=== PATIENT | male | born 1995 | race Caucasian/White ===

== ENCOUNTER 2016-11-19 23:19 | Emergency (ER) | payer SELFPAY ==
[2016-11-19 23:42] VITALS: BP 130/64
[2016-11-19 23:49] LABS: Urine Bilirubin Negative (Negative); Urine Glucose Negative (Negative); Urine Nitrite Negative (Negative)
[2016-11-20 00:02] LABS: Hematocrit 43 % (42-52); Hemoglobin 13.9 g/dl (14.0-18.0); Mean Corpuscular HGB Conc 33 g/dl (31-36); Mean Corpuscular Hemoglobin 25 pg (27-31); Mean Corpuscular Volume 78 fL (80-94); Mean Platelet Volume 8 um3 (7.4-10.4); Red Blood Count 5.47 10^6/ul (4.0-5.4); Red Cell Distribution Width 14 % (10.5-15); White Blood Count 8.1 10^3/ul (3.5-10.8)
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
[2016-11-20 00:13] LABS: ALT 8 U/L (7-52); AST 15 U/L (13-39); Albumin 4.5 g/dL (3.2-5.2); Alkaline Phosphatase 39 U/L (34-104); Anion Gap 7 mmol/L (2-11); BUN/Creatinine Ratio 11.8 (8-20); Blood Urea Nitrogen 11 mg/dL (6-24); CO2 Carbon Dioxide 26 mmol/L (22-32); Chloride 103 mmol/L (101-111); EGFR African American 134.6 (>60); EGFR Non-African American 104.7 (>60); Globulin 2.6 g/dL (2-4); Glucose 95 mg/dL (70-100); Potassium 3.7 mmol/L (3.5-5.0); Sodium 136 mmol/L (133-145); Total Protein 7.1 g/dL (6.4-8.9)
[2016-11-20 00:14] LABS: Benzodiazepine Urine Screen None Detected (None Detect)
[2016-11-20 00:28] LABS: Acetaminophen < 15 mcg/mL; Alcohol < 10 mg/dL (<10); Salicylate < 2.50 mg/dL (<30)
[2016-11-20 00:38] LABS: TSH (Thyroid Stimulating Horm) 4.62 mcIU/mL (0.34-5.60)
== END 2016-11-20 12:52 | disposition home or self-care (01) ==
LOC: ED 23:19
DX: R45.851 Suicidal ideations (principal); F17.210 Nicotine dependence, cigarettes, uncomplicated; F32.9 Major depressive disorder, single episode, unspecified
CPT/HCPCS: 36415; 80053; 80307; 80320; 80329; 81003; 84443; 85025; 99284; G0480

== ENCOUNTER → 2017-03-14 14:24 | Emergency (ER) | payer SELFPAY ==
[2017-03-14 14:43] VITALS: BP 148/53
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
== END | disposition home or self-care (01) ==
LOC: ED 14:24
DX: S01.511A Laceration without foreign body of lip, initial encounter (principal); S00.83XA Contusion of other part of head, initial encounter; Y04.0XXA Assault by unarmed brawl or fight, initial encounter; Y92.9 Unspecified place or not applicable; F32.9 Major depressive disorder, single episode, unspecified; F41.9 Anxiety disorder, unspecified; F17.210 Nicotine dependence, cigarettes, uncomplicated

== ENCOUNTER 2017-06-01 17:53 | Emergency (ER) | payer SELFPAY ==
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
--- NOTE | 2017-06-01 20:05 | RAD ---
INDICATION: Chest pain. COMPARISON: Comparison is made with a prior chest x-ray study from October 10, 2008. TECHNIQUE: Dual-energy PA and lateral views of the chest were obtained. FINDINGS: The heart is within normal limits in size. Mediastinal and hilar contours appear within normal limits. The lungs are clear. No pleural effusion or pneumothorax is seen. IMPRESSION: NO EVIDENCE FOR ACTIVE CARDIOPULMONARY DISEASE.
[2017-06-01 20:12] VITALS: BP 128/79
== END 2017-06-01 20:11 | disposition home or self-care (01) ==
LOC: ED 17:53
DX: R07.89 Other chest pain (principal)
CPT/HCPCS: 71020; 99282

== ENCOUNTER → 2017-11-08 15:04 | Emergency (ER) | payer SELFPAY ==
[~2017-11-08 15:04] MED LIST: Benzocaine/Butamben/Tetracain* SPRAY TOPICAL ONE; Clindamycin CAP* 150 MG PO ONE; Ibuprofen TAB* 800 MG PO ONE; Ketorolac INJ* 60 MG/2 ML VIAL IM ONE; traMADol TAB* 50 MG PO ONE
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
[2017-11-08 19:31] VITALS: BP 158/88
--- NOTE | 2017-11-12 12:59 | ED ---
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 He was started on clindamycin capsules and chlorhexadine oral mouth wash. No change at this time.
== END | disposition home or self-care (01) ==
LOC: ED 15:04
DX: K04.7 Periapical abscess without sinus (principal); B96.89 Other specified bacterial agents as the cause of diseases classified elsewhere; F17.210 Nicotine dependence, cigarettes, uncomplicated
CPT/HCPCS: 87070; 87076; 87185; 87205; 87640; 87641; 96372; 99282; A9270-GY; J1885

== ENCOUNTER 2018-02-28 16:06 | Emergency (ER) | payer SELFPAY ==
[2018-02-28] MEDS ORDERED: Tetan/Diph/Pertus SYR(Tdap)* 0.5 ML SYR(BOOSTRIX) use SYR IM ONE (16:44)
--- NOTE | 2018-02-28 16:50 | ED ---
Bite Injury/Animal - HPI Summary HPI Summary: Patient is an otherwise healthy 22-year-old male presenting to the ED with a chief complaint of dog bite to the right arm. He sustained the injury at approximately midnight last night (18 hours ago)There are 3 large puncture wounds to the right forearm not requiring sutures. He denies any fevers, sweats , chills. He is able to move about the wrist, elbow joint and fingertips without pain. Denies any numbness, tingling, color or temperature changes to the ipsilateral hand. - History of Current Complaint Chief Complaint: EDAnimalBite Stated Complaint: DOG BITE Time Seen by Provider: 02/28/18 16:31 Hx Obtained From: Patient Onset of Injury: Happened hours ago Type of Bite: Pet Hx of Bite: Unprovoked Has Animal Been Immunized?: Yes Severity Initially: Mild Severity Currently: Mild Pain Intensity: 4 Pain Scale Used: 0-10 Numeric Character: Puncture Alleviating Factor(s): Rest Associated Signs And Symptoms: Positive: Negative Animal Available for Observation: Yes - Risk Factors Infection/Sepsis Risk Factors: Negative - Allergies/Home Medications Allergies/Adverse Reactions: Allergies Allergy/AdvReac Type Severity Reaction Status Date / Time No Known Allergies Allergy Verified 02/28/18 16:25 PMH/Surg Hx/FS Hx/Imm Hx Previously Healthy: Yes Endocrine/Hematology History: Denies: Hx Anticoagulant Therapy, Hx Blood Disorders Psychiatric History: Reports: Hx Anxiety, Hx Depression, Hx Panic Disorder, Hx Suicide Attempt - walked up a deborah to jump off, Hx of Violent Episodes Against Others, Hx Substance Abuse - marijuana Denies: Hx Attention Deficit Hyperactivity Disorder, Hx Eating Disorder, Hx Post Traumatic Stress Disorder, Hx Inpatient Treatment, Hx Community Mental Health Tx, Hx Schizophrenia, Hx Bipolar Disorder, Other Psychiatric Issues/ Disorders - Surgical History Surgery Procedure, Year, and Place: Pt had full set of ovaries removed when 3 years old - Immunization History Hx Pertussis Vaccination: No Immunizations Up to Date: Unable to Obtain/Confirm Infectious Disease History: No Infectious Disease History: Denies: Traveled Outside the [place] in Last 30 Days - Family History Known Family History: Positive: Hypertension, Other - alcoholism, depression - Social History Occupation: Employed Full-time Lives: With Family - to Alcohol Use: Weekly Alcohol Amount: 1 beer per month Hx Substance Use: Yes Substance Use Type: Reports: Marijuana Substance Use Comment - Amount & Last Used: Daily Hx Tobacco Use: Yes Smoking Status (MU): Current Every Day Smoker Type: Cigarettes Length of Time of Smoking/Using Tobacco: since he was 17 years old Have You Smoked in the Last Year: Yes Review of Systems Constitutional: Negative Negative: Fever, Chills, Fatigue, Skin Diaphoresis Eyes: Negative Cardiovascular: Negative Respiratory: Negative Negative: Shortness Of Breath Negative: Abdominal Pain, Vomiting, Diarrhea Genitourinary: Negative Positive: no symptoms reported, see HPI - was Positive: Other - 3 punctures wounds Neurological: Negative All Other Systems Reviewed And Are Negative: Yes Physical Exam Triage Information Reviewed: Yes Vital Signs On Initial Exam: Initial Vitals Temp Pulse Resp BP Pulse Ox 98.7 F 90 15 128/78 98 02/28/18 16:25 02/28/18 16:25 02/28/18 16:25 02/28/18 16:25 02/28/18 16:25 Vital Signs Reviewed: Yes Appearance: Positive: Well-Appearing, Well-Nourished Skin: Positive: Skin Color Reflects Adequate Perfusion, Other - 3 puncture wounds Head/Face: Positive: Normal Head/Face Inspection Eyes: Positive: EOMI, BELEN, Conjunctiva Clear Neck: Positive: Supple, Nontender, No Lymphadenopathy Respiratory/Lung Sounds: Positive: Clear to Auscultation, Breath Sounds Present Cardiovascular: Positive: Normal, RRR, Pulses are Symmetrical in both Upper and Lower Extremities Musculoskeletal: Positive: Normal, Strength/ROM Intact Neurological: Positive: Speech Normal Psychiatric: Positive: Normal, Affect/Mood Appropriate AVPU Assessment: Alert Diagnostics - Vital Signs Vital Signs Temp Pulse Resp BP Pulse Ox 02/28/18 16:25 98.7 F 90 15 128/78 98 - Laboratory Lab Statement: Any lab studies that have been ordered have been reviewed, and results considered in the medical decision making process. Bite Injury Course/Dx - Course Course Of Treatment: Patient is evaluated for 3 puncture wounds to the right forearm from a known dog/dogbite. Immunizations including rabies are up to date. He is given Augmentin 5 days. Wound occurred 18 hours ago and continues to be non-erythematous, no warmth and denies any pain. He is moving the extremity very well. He is okay with this plan and discharged. No given for work today. - Diagnoses Differential Diagnosis/HQI/PQRI: Positive: Cellulitis, Laceration Provider Diagnosis: Dog bite Discharge - Sign-Out/Discharge Documenting (check all that apply): Discharge - Discharge Plan Condition: Stable Disposition: HOME Prescriptions: Amoxicillin/Clavulanate TAB* [Augmentin TAB 875*] 875 mg PO BID #10 tab Patient Education Materials: Animal Bite (ED) Forms: *Work Release Referrals: Idalia Call MD [Primary Care Provider] - Additional Instructions: Augmentin twice daily 5 days - Billing Disposition and Condition Condition: STABLE Disposition: HOME
[2018-02-28 17:04] VITALS: BP 137/69
== END 2018-02-28 17:02 | disposition home or self-care (01) ==
LOC: ED 16:06
DX: S51.831A Puncture wound without foreign body of right forearm, initial encounter (principal); W54.0XXA Bitten by dog, initial encounter; Y93.9 Activity, unspecified; Y92.9 Unspecified place or not applicable; Z23 Encounter for immunization; F41.0 Panic disorder [episodic paroxysmal anxiety]; F32.9 Major depressive disorder, single episode, unspecified; Z91.5 Personal history of self-harm; F17.210 Nicotine dependence, cigarettes, uncomplicated
CPT/HCPCS: 90471; 90715; 99282

== ENCOUNTER 2018-12-15 00:51 | Emergency (ER) | payer SELFPAY ==
[2018-12-15 00:55] VITALS: BP 194/96
== END 2018-12-15 01:44 | disposition left against medical advice (07) ==
LOC: ED 00:51
DX: K08.89 Other specified disorders of teeth and supporting structures (principal); Z53.21 Procedure and treatment not carried out due to patient leaving prior to being seen by health care provider

== ENCOUNTER 2018-12-15 19:33 | Emergency (ER) | payer SELFPAY ==
[2018-12-15] MEDS ORDERED: Lidocaine 2% PF * 5 ML VIAL ONE (20:31)
--- NOTE | 2018-12-15 20:41 | ED ---
Throat Pain/Nasal Congestion - HPI Summary HPI Summary: This patient is a 23 year old M presenting to ED with a chief complaint of abscess in his L upper mouth since 3-4 days ago. The patient has not seen a dentist yet. Friend who accompanied the patient says that he gave the patient 600 mg of Ibuprofen at 1500 today which alleviated the pain a bit. The CC is described as getting progressively worse. The patient rates the pain 10/10 in severity. Symptoms aggravated by nothing. Symptoms alleviated by Ibuprofen. Patient reports nausea secondary to pain. Patient denies PMHx of infections and does not take any medications. The patient is a smoker and drinks alcohol weekly. He also smokes marijuana. - History of Current Complaint Chief Complaint: EDGeneral Hx Obtained From: Patient Onset/Duration: Sudden Onset, Lasting Days - 3 days ago, Still Present Severity: Severe - 10/10 - Allergies/Home Medications Allergies/Adverse Reactions: Allergies Allergy/AdvReac Type Severity Reaction Status Date / Time No Known Allergies Allergy Verified 12/15/18 19:40 PMH/Surg Hx/FS Hx/Imm Hx Endocrine/Hematology History: Denies: Hx Anticoagulant Therapy, Hx Blood Disorders, Hx Diabetes Cardiovascular History: Denies: Hx Coronary Artery Disease, Hx Hypertension Psychiatric History: Reports: Hx Anxiety, Hx Depression, Hx Panic Disorder, Hx Suicide Attempt - walked up a deborah to jump off, Hx of Violent Episodes Against Others, Hx Substance Abuse - marijuana Denies: Hx Attention Deficit Hyperactivity Disorder, Hx Eating Disorder, Hx Post Traumatic Stress Disorder, Hx Inpatient Treatment, Hx Community Mental Health Tx, Hx Schizophrenia, Hx Bipolar Disorder, Other Psychiatric Issues/ Disorders - Surgical History Surgery Procedure, Year, and Place: Pt had full set of ovaries removed when 3 years old Infectious Disease History: No Infectious Disease History: Denies: Traveled Outside the [place] in Last 30 Days - Family History Known Family History: Positive: Hypertension, Other - alcoholism, depression - Social History Alcohol Use: Weekly Alcohol Amount: 1 beer per month Hx Substance Use: Yes Substance Use Type: Reports: Marijuana Substance Use Comment - Amount & Last Used: Daily Hx Tobacco Use: Yes Smoking Status (MU): Current Every Day Smoker Type: Cigarettes Length of Time of Smoking/Using Tobacco: since he was 17 years old Have You Smoked in the Last Year: Yes Review of Systems Positive: Other - abscess on L upper mouth Positive: Nausea - secondary to pain in his mouth All Other Systems Reviewed And Are Negative: Yes Physical Exam - Summary Physical Exam Summary: VITAL SIGNS: Reviewed. GENERAL: Patient is a well-developed and nourished MALE who is lying comfortable in the stretcher. Patient is not in any acute respiratory distress. HEAD AND FACE: No signs of trauma. No ecchymosis, hematomas or skull depressions. No sinus tenderness. EYES: PERRLA, EOMI x 2, No injected conjunctiva, no nystagmus. EARS: Hearing grossly intact. Ear canals and tympanic membranes are within normal limits. MOUTH: Small abscess on the L side of anterior aspect of the roof of the mouth, probably secondary to tooth infection. NECK: Supple, trachea is midline, no adenopathy, no JVD, no carotid bruit, no c- spine tenderness, neck with full ROM. CHEST: Symmetric, no tenderness at palpation LUNGS: Clear to auscultation bilaterally. No wheezing or crackles. CVS: Regular rate and rhythm, S1 and S2 present, no murmurs or gallops appreciated. ABDOMEN: Soft, non-tender. No signs of distention. No rebound no guarding, and no masses palpated. Bowel sounds are normal. EXTREMITIES: FROM in all major joints, no edema, no cyanosis or clubbing. NEURO: Alert and oriented x 3. No acute neurological deficits. Speech is normal and follows commands. SKIN: Dry and warm Triage Information Reviewed: Yes Vital Signs On Initial Exam: Initial Vitals Temp Pulse Resp BP Pulse Ox 99.7 F 78 16 160/96 97 12/15/18 19:36 12/15/18 19:36 12/15/18 19:36 12/15/18 19:36 12/15/18 19:36 Vital Signs Reviewed: Yes Procedures - Incision and Drainage Face Site: L side of anterior aspect of the roof of the mouth-culture was sent Anesthesia: Lidocaine - 1% Instrument(s): Scalpel - 11 blade Diagnostics - Vital Signs Vital Signs Temp Pulse Resp BP Pulse Ox 12/15/18 19:36 99.7 F 78 16 160/96 97 - Laboratory Lab Statement: Any lab studies that have been ordered have been reviewed, and results considered in the medical decision making process. EENT Course/Dx - Course Assessment/Plan: Patient hasnt small abscess in the roof of the mild next to tooth #11 and 12. I placed a slight amount of lidocaine and today lanced the abscess and he presents significant amount of pus and blood. Patient was given Augmentin, Toradol and Percocet for the pain. Patient will be discharged home with follow-up with his dentist. He will be given a prescription for Augmentin and [place]. Patient is feeling better, she is hemodynamically stable alert and oriented 3. - Differential Diagnoses Differential Diagnoses: Dental Abscess, Dental Caries, Lamonte's Angina - Diagnoses Provider Diagnoses: Dental abscess Discharge - Sign-Out/Discharge Documenting (check all that apply): Patient Departure - discharge Patient Received Moderate/Deep Sedation with Procedure: No - Discharge Plan Condition: Stable Disposition: HOME Prescriptions: Amoxicillin/Clavulanate TAB* [Augmentin TAB 875*] 875 mg PO BID #20 tab Hydrocodone/Acetaminophen [[place] 5-325 Tablet] 1 each PO Q6H #10 tablet MDD 4 Patient Education Materials: Dental Abscess (ED) Referrals: [facility] [Outside] - As Soon As Possible (Please see a dentist.) Additional Instructions: RETURN TO THE ED FOR ANY WORSENING OR NEW SYMPTOMS. - Billing Disposition and Condition Condition: STABLE Disposition: Home - Attestation Statements Document Initiated by Josemanuelibe: Yes Documenting Scribe: Malik Yun Provider For Whom Josemanuelibe is Documenting (Include Credential): Ry Gerber MD Scribe Attestation: Malik Restrepo scribed for Ry Gerber MD on 12/15/18 at 2121. Scribe Documentation Reviewed: Yes Provider Attestation: The documentation as recorded by the Malik combs accurately reflects the service I personally performed and the decisions made by Ry gill MD Status of Scribe Document: Viewed
[2018-12-15] MEDS ORDERED: Ketorolac INJ* 60 MG/2 ML VIAL IM ONE (20:44)
[2018-12-15] MEDS ORDERED: Amoxicillin/Clavulanate TAB* 875 MG PO ONE (20:44)
[2018-12-15] MEDS ORDERED: oxyCODONE/Acetamin 5/325 MG* TAB PO ONE (20:44)
[2018-12-15 21:19] VITALS: BP 179/95
== END 2018-12-15 21:17 | disposition home or self-care (01) ==
LOC: ED 19:33
DX: K12.2 Cellulitis and abscess of mouth (principal); F17.210 Nicotine dependence, cigarettes, uncomplicated
CPT/HCPCS: 87070; 87077; 87205; 87640; 87641; 96372; 99283; A9270-GY; J1885

== ENCOUNTER 2019-12-11 13:52 | Emergency (ER) | payer SELFPAY ==
[2019-12-11 14:27] LABS: ABS Eosinophils 0.1 10^3/ul (0-0.6); ABS Lymphocytes 0.9 10^3/ul (1.0-4.8); ABS Monocytes 0.6 10^3/ul (0-0.8); Eosinophil % 1.6 %; Hematocrit 45 % (42-52); Lymphocyte % 11.6 %; Mean Corpuscular HGB Conc 34 g/dL (31-36); Mean Corpuscular Hemoglobin 26 pg (27-31); Mean Corpuscular Volume 78 fL (80-94); Mean Platelet Volume 8.4 fL (7.4-10.4); Platelet Count 216 10^3/uL (150-450); Red Blood Count 5.71 10^6 /uL (4.18-5.48); Red Cell Distribution Width 14 % (10-15); White Blood Count 7.6 10^3/uL (3.5-10.8)
[2019-12-11 14:33] LABS: INR 1.01 (0.82-1.09)
[2019-12-11 14:46] LABS: Albumin 5.1 g/dL (3.2-5.2); Albumin/Globulin Ratio 1.8 (1-3); BUN/Creatinine Ratio 10.3 (8-20); Calcium 9.7 mg/dL (8.6-10.3); EGFR African American 116.1 (>60); EGFR Non-African American 95.9 (>60); Globulin 2.9 g/dL (2-4); Potassium 3.8 mmol/L (3.5-5.0); Total Bilirubin 0.5 mg/dL (0.2-1.0)
--- NOTE | 2019-12-11 15:23 | ED ---
Influenza-Like Illness - HPI Summary HPI Summary: Pt. is a 24 y.o male presenting to ER for flu like symptoms x 4 days. Pt. notes chills, cough, and sore throat. Notes chest pain with coughing. Sx are mild in severity. Past hx of smoking. No current modifying factors. - History of Current Complaint Chief Complaint: EDUpperRespComplaint Time Seen by Provider: 12/11/19 15:13 Hx Obtained From: Patient - Allergy/Home Medications Allergies/Adverse Reactions: Allergies Allergy/AdvReac Type Severity Reaction Status Date / Time No Known Allergies Allergy Verified 12/11/19 14:03 PMH/Surg Hx/FS Hx/Imm Hx Previously Healthy: Yes Endocrine/Hematology History: Denies: Hx Anticoagulant Therapy, Hx Blood Disorders, Hx Diabetes Cardiovascular History: Denies: Hx Coronary Artery Disease, Hx Hypertension Psychiatric History: Reports: Hx Anxiety, Hx Depression, Hx Panic Disorder, Hx Suicide Attempt - walked up a deborah to jump off, Hx of Violent Episodes Against Others, Hx Substance Abuse - marijuana Denies: Hx Attention Deficit Hyperactivity Disorder, Hx Eating Disorder, Hx Post Traumatic Stress Disorder, Hx Inpatient Treatment, Hx Community Mental Health Tx, Hx Schizophrenia, Hx Bipolar Disorder, Other Psychiatric Issues/ Disorders - Surgical History Surgery Procedure, Year, and Place: Pt had full set of ovaries removed when 3 years old - Immunization History Date of Influenza Vaccine: none Infectious Disease History: No Infectious Disease History: Denies: Traveled Outside the [place] in Last 30 Days - Family History Known Family History: Positive: Hypertension, Other - alcoholism, depression, Non-Contributory - Social History Occupation: Employed Full-time Lives: With Family Alcohol Use: Weekly Alcohol Amount: 1 beer per month Hx Substance Use: Yes Substance Use Type: Reports: Marijuana Substance Use Comment - Amount & Last Used: Daily Hx Tobacco Use: Yes Smoking Status (MU): Current Every Day Smoker Type: Cigarettes Length of Time of Smoking/Using Tobacco: since he was 17 years old Have You Smoked in the Last Year: Yes Review of Systems Positive: Fever, Chills Eyes: Negative Positive: Sore Throat, Nasal Discharge Cardiovascular: Negative Positive: Cough. Negative: Shortness Of Breath Positive: Vomiting, Nausea. Negative: Abdominal Pain, Diarrhea Genitourinary: Negative Positive: Myalgia Skin: Negative Negative: Rash Neurological: Negative All Other Systems Reviewed And Are Negative: Yes Physical Exam Triage Information Reviewed: Yes Vital Signs On Initial Exam: Initial Vitals Temp Pulse Resp BP Pulse Ox 99.7 F 87 15 159/98 99 12/11/19 14:02 12/11/19 14:02 12/11/19 14:02 12/11/19 14:02 12/11/19 14:02 Vital Signs Reviewed: Yes Appearance: Positive: Well-Appearing - Pt. sitting on bed in NAD. Skin: Positive: Warm, Dry Head/Face: Positive: Normal Head/Face Inspection Eyes: Positive: Normal, EOMI, BELEN ENT: Positive: Pharyngeal erythema, TMs normal. Negative: Tonsillar swelling, Tonsillar exudate, Hoarse voice Neck: Positive: Supple Respiratory/Lung Sounds: Positive: Clear to Auscultation, Breath Sounds Present. Negative: Rales, Rhonchi, Stridor, Wheezes Cardiovascular: Positive: Normal, RRR Abdomen Description: Positive: Nontender, Soft Musculoskeletal: Positive: Normal, Strength/ROM Intact Neurological: Positive: Normal, CN Intact II-III Psychiatric: Positive: Affect/Mood Appropriate Procedures - Sedation Patient Received Moderate/Deep Sedation with Procedure: No Diagnostics - Vital Signs Vital Signs Temp Pulse Resp BP Pulse Ox 12/11/19 14:02 99.7 F 87 15 159/98 99 - Laboratory Lab Results: Lab Results 12/11/19 12/11/19 12/11/19 Range/Units 14:13 14:13 14:13 WBC 7.6 (3.5-10.8) 10^3/uL RBC 5.71 H (4.18-5.48) 10^6 /uL Hgb 15.0 (14.0-18.0) g/dL Hct 45 (42-52) % MCV 78 L (80-94) fL MCH 26 L (27-31) pg MCHC 34 (31-36) g/dL RDW 14 (10-15) % Plt Count 216 (150-450) 10^3/uL MPV 8.4 (7.4-10.4) fL Neut % (Auto) 78.4 % Lymph % (Auto) 11.6 % [place] % (Auto) 7.9 % Eos % (Auto) 1.6 % Baso % (Auto) 0.5 % Absolute Neuts (auto) 6.0 (1.5-7.7) 10^3/ul Absolute Lymphs (auto) 0.9 L (1.0-4.8) 10^3/ul Absolute Monos (auto) 0.6 (0-0.8) 10^3/ul Absolute Eos (auto) 0.1 (0-0.6) 10^3/ul Absolute Basos (auto) 0.0 (0-0.2) 10^3/ul Absolute Nucleated RBC 0.0 10^3/ul Nucleated RBC % 0.0 INR (Anticoag Therapy) 1.01 (0.82-1.09) Sodium 136 (135-145) mmol/L Potassium 3.8 (3.5-5.0) mmol/L Chloride 101 (101-111) mmol/L Carbon Dioxide 25 (22-32) mmol/L Anion Gap 10 (2-11) mmol/L BUN 10 (6-24) mg/dL Creatinine 0.97 (0.67-1.17) mg/dL Est GFR ( Amer) 116.1 (>60) Est GFR (Non-Af Amer) 95.9 (>60) BUN/Creatinine Ratio 10.3 (8-20) Glucose 84 (70-100) mg/dL Calcium 9.7 (8.6-10.3) mg/dL Total Bilirubin 0.50 (0.2-1.0) mg/dL AST 18 (13-39) U/L ALT 20 (7-52) U/L Alkaline Phosphatase 52 (34-104) U/L Troponin I 0.00 (<0.03) ng/mL Total Protein 8.0 (6.4-8.9) g/dL Albumin 5.1 (3.2-5.2) g/dL Globulin 2.9 (2-4) g/dL Albumin/Globulin Ratio 1.8 (1-3) Result Diagrams: 12/11/19 14:13 12/11/19 14:13 Lab Statement: Any lab studies that have been ordered have been reviewed, and results considered in the medical decision making process. Flu Symptom Course/Dx - Course Course Of Treatment: Patient with above symptoms. Nontoxic. Tylenol given for pain and fever. Positive influenza. Outside window for Tamiflu. Instructed on supportive care. We'll follow up with family doctor return to the ER if symptoms change or worsen. Work excuse given. - Diagnoses Differential Diagnosis/HQI/PQRI: Positive: Bronchitis, Influenza, Pneumonia, Upper Respiratory Infection Provider Diagnoses: Influenza Discharge ED - Sign-Out/Discharge Documenting (check all that apply): Patient Departure - Discharge Plan Condition: Good Disposition: HOME Patient Education Materials: Influenza (ED) Forms: *Work Release Referrals: Idalia Call MD [Primary Care Provider] - Additional Instructions: Follow up with PCP Increase fluids and rest Tylenl or Motrin for pain and fever as directed Return to ER if symptoms change or worsen - Billing Disposition and Condition Condition: GOOD Disposition: Home
[2019-12-11] MEDS ORDERED: Acetaminophen TAB* 325 MG PO ONE (15:30)
[2019-12-11 15:36] LABS: Influenza B Molecular POSITIVE (Negative)
[2019-12-11 16:14] VITALS: BP 126/68
== END 2019-12-11 16:13 | disposition home or self-care (01) ==
LOC: ED 13:52
DX: J11.1 Influenza due to unidentified influenza virus with other respiratory manifestations (principal); F41.9 Anxiety disorder, unspecified; F32.9 Major depressive disorder, single episode, unspecified; F17.210 Nicotine dependence, cigarettes, uncomplicated; Z90.89 Acquired absence of other organs
CPT/HCPCS: 36415; 80053; 84484; 85025; 85610; 93005; 99282; A9270-GY

== ENCOUNTER → 2020-02-28 12:29 | Emergency (ER) | payer SELFPAY ==
[~2020-02-28 12:29] MED LIST changes: -Benzocaine/Butamben/Tetracain* SPRAY TOPICAL ONE; -Clindamycin CAP* 150 MG PO ONE; +Ibuprofen TAB* 400 MG PO ONE; -Ibuprofen TAB* 800 MG PO ONE; -Ketorolac INJ* 60 MG/2 ML VIAL IM ONE; +Lidocaine 1% MPF ** 5 ML VIAL INJ ONE; +Penicillin VK TAB* 250 MG PO ONE; -traMADol TAB* 50 MG PO ONE
--- NOTE | 2020-02-28 12:51 | ED ---
Throat Pain/Nasal Congestion - HPI Summary HPI Summary: 24 year old M presenting to [facility] with a chief complaint of an abscess on the roof of his mouth, caused by a tooth that he needs to have removed, since a few days ago. The patient rates the pain 7/10 in severity. Symptoms aggravated by nothing. Symptoms alleviated by nothing. Patient reports taking ibuprofen for his pain. He denies any fever. He has had similar symptoms previously. Medication list reviewed. Allergy list reviewed. - History of Current Complaint Chief Complaint: EDDentalPain Time Seen by Provider: 02/28/20 12:44 Hx Obtained From: Patient Onset/Duration: Lasting Days, Still Present - Allergies/Home Medications Allergies/Adverse Reactions: Allergies Allergy/AdvReac Type Severity Reaction Status Date / Time No Known Allergies Allergy Verified 02/28/20 12:33 Home Medications: Home Medications NK [No Home Medications Reported] 02/28/20 [History Confirmed 02/28/20] PMH/Surg Hx/FS Hx/Imm Hx Endocrine/Hematology History: Denies: Hx Anticoagulant Therapy, Hx Blood Disorders, Hx Diabetes Cardiovascular History: Denies: Hx Coronary Artery Disease, Hx Hypertension Psychiatric History: Reports: Hx Anxiety, Hx Depression, Hx Panic Disorder, Hx Suicide Attempt - walked up a deborah to jump off, Hx of Violent Episodes Against Others, Hx Substance Abuse - marijuana Denies: Hx Attention Deficit Hyperactivity Disorder, Hx Eating Disorder, Hx Post Traumatic Stress Disorder, Hx Inpatient Treatment, Hx Community Mental Health Tx, Hx Schizophrenia, Hx Bipolar Disorder, Other Psychiatric Issues/ Disorders - Surgical History Surgical History: Yes Surgery Procedure, Year, and Place: Pt had full set of ovaries removed when 3 years old - Immunization History Date of Influenza Vaccine: none Infectious Disease History: No Infectious Disease History: Denies: Traveled Outside the [place] in Last 30 Days - Family History Known Family History: Positive: Hypertension, Other - alcoholism, depression - Social History Alcohol Use: Weekly Hx Substance Use: Yes Substance Use Type: Reports: Marijuana Substance Use Comment - Amount & Last Used: Daily Hx Tobacco Use: Yes Smoking Status (MU): Current Every Day Smoker Type: Cigarettes Length of Time of Smoking/Using Tobacco: since he was 17 years old Have You Smoked in the Last Year: Yes Review of Systems Negative: Fever Positive: Other - Abscess on the roof of his mouth All Other Systems Reviewed And Are Negative: Yes Physical Exam - Summary Physical Exam Summary: Constitutional: Well-developed, Well-nourished, Alert. (-) Distressed Skin: Warm, Dry HENT: Fluctuant abscess roof of mouth adjacent to left premolar. Eyes: Conjunctiva normal Neck: Musculoskeletal ROM normal neck. (-) JVD, (-) Stridor, (-) Tracheal deviation Cardio: Rhythm regular, rate normal, Heart sounds normal; Intact distal pulses; The pedal pulses are 2+ and symmetric. Radial pulses are 2+ and symmetric. (-) Murmur Pulmonary/Chest wall: Effort normal. (-) Respiratory distress, (-) Wheezes, (-) Rales Abd: Soft, (-) tenderness, (-) Distension, (-) Guarding, (-) Rebound Musculoskeletal: (-) Edema Lymph: (-) Cervical adenopathy Neuro: Alert, Oriented x3 Psych: Mood and affect Normal Triage Information Reviewed: Yes Vital Signs On Initial Exam: Initial Vitals Temp Pulse Resp BP Pulse Ox 97.9 F 88 16 177/108 94 02/28/20 12:29 02/28/20 12:29 02/28/20 12:29 02/28/20 12:29 02/28/20 12:29 Vital Signs Reviewed: Yes Procedures - Sedation Patient Received Moderate/Deep Sedation with Procedure: No - Incision and Drainage Face Site: dental abscess, roof of mouth, adjacent to left premolars Anesthesia: Local - 1% lidocaine Instrument(s): Scalpel - no purulent discharge. Small amount of bleeding. Diagnostics - Vital Signs Vital Signs Temp Pulse Resp BP Pulse Ox 02/28/20 12:29 97.9 F 88 16 177/108 94 - Laboratory Lab Statement: Any lab studies that have been ordered have been reviewed, and results considered in the medical decision making process. EENT Course/Dx - Course Course Of Treatment: 24 year old M presenting to [facility] with a chief complaint of an abscess on the roof of his mouth, caused by a tooth that he needs to have removed, since a few days ago. Physical exam findings: Fluctuant abscess roof of mouth adjacent to left premolar. In the ED course, the patient was given penicillin. I&D attempted, no purulent d/c obtained. Patient will be discharged with prescription for penicilin and follow up from his dentist. The patient is agreeable with this plan. - Diagnoses Provider Diagnoses: Dental abscess - Critical Care Time Critical Care Statement: Critical care time is provided exclusive of any time spent performing procedures. Discharge ED - Sign-Out/Discharge Documenting (check all that apply): Patient Departure - Discharge Plan Condition: Stable Disposition: HOME Patient Education Materials: Dental Abscess (ED) Referrals: Idalia Call MD [Primary Care Provider] - [facility] [Outside] - As Soon As Possible Additional Instructions: Follow-up with your dentist at the first available appointment. Take your medication as prescribed. Return to the emergency department for changing or worsening symptoms. - Billing Disposition and Condition Condition: STABLE Disposition: Home - Attestation Statements Document Initiated by Josemanuelibe: Yes Documenting Scribe: Kenzie Oliva Provider For Whom Clayton is Documenting (Include Credential): Marvel Holland DO Scribe Attestation: Kenzie Restrepo scribed for Marvel Holland DO on 02/28/20 at 1437. Scribe Documentation Reviewed: Yes Provider Attestation: The documentation as recorded by the Kenzie combs accurately reflects the service I personally performed and the decisions made by Marvel gill DO Status of Scribe Document: Viewed
[2020-02-28 14:27] VITALS: BP 174/102
== END | disposition home or self-care (01) ==
LOC: ED 12:29
DX: K04.7 Periapical abscess without sinus (principal); L02.91 Cutaneous abscess, unspecified; F41.9 Anxiety disorder, unspecified; F32.9 Major depressive disorder, single episode, unspecified; F41.0 Panic disorder [episodic paroxysmal anxiety]; F17.210 Nicotine dependence, cigarettes, uncomplicated
CPT/HCPCS: 41800; 87070; 87076; 87205; 96374; 99282; A9270-GY

== ENCOUNTER 2022-11-06 13:52 | Inpatient (IN) ==
[2022-11-06] MEDS: HYDROmorphone 0.5 MG/0.5 ML SYRINGE IV SLOW PU PRN ×2 (15:49→20:45)
[2022-11-06] MEDS ORDERED: Iohexol 350 (CONTRAST) 500 ML MDV IV ONE (17:12)
[2022-11-06] MEDS: NS 0.9% 1000 ml BAG 1,000 ML IV SCH (17:32)
[2022-11-07] MEDS: HYDROmorphone 0.5 MG/0.5 ML SYRINGE IV SLOW PU PRN ×4 (00:51→21:44)
[2022-11-07] MEDS: NS 0.9% 1000 ml BAG 1,000 ML IV SCH ×2 (03:31→13:10)
[2022-11-07 06:55] LABS: Albumin 3.5 g/dL (3.2-5.2); Albumin/Globulin Ratio 1.5 (1-3); Calcium 8.3 mg/dL (8.6-10.3); Globulin 2.4 g/dL (2-4); Potassium 4.3 mmol/L (3.5-5.0); Total Bilirubin 0.3 mg/dL (0.2-1.0); Total Protein 5.9 g/dL (6.4-8.9); eGFR CKD-EPI 138.1 (>60)
[2022-11-07 07:01] LABS: ABS Eosinophils 0.3 10^3/ul (0-0.6); ABS Lymphocytes 1.4 10^3/ul (1.0-4.8); ABS Monocytes 0.6 10^3/ul (0-0.8); ABS Neutrophils 7.2 10^3/ul (1.5-7.7); Hematocrit 36 % (42-52); Hemoglobin 11.7 g/dL (14.0-18.0); Lymphocyte % 14.9 %; Mean Corpuscular HGB Conc 32 g/dL (31-36); Mean Corpuscular Hemoglobin 25 pg (27-31); Mean Corpuscular Volume 78 fL (80-94); Mean Platelet Volume 8.4 fL (7.4-10.4); Platelet Count 359 10^3/uL (150-450); Red Blood Count 4.61 10^6 /uL (4.18-5.48); Red Cell Distribution Width 14 % (10-15); White Blood Count 9.6 10^3/uL (3.5-10.8)
[2022-11-07] MEDS ORDERED: Influenza vaccine *QUAD* *2022-23* 0.5 ML SYRINGE IM ONE (09:00)
[2022-11-07] MEDS ORDERED: HYDROmorphone 1 MG/1 ML SYRINGE IV SLOW PU ONE (09:45)
[2022-11-07] MEDS: Nicotine PATCH 14 MG/24 HR PATCH TRANSDERM SCH (09:55)
[2022-11-07] MEDS ORDERED: HYDROmorphone 0.5 MG/0.5 ML SYRINGE IV SLOW PU PRN (12:13)
[2022-11-07] MEDS ORDERED: HYDROmorphone 1 MG/1 ML SYRINGE IV SLOW PU PRN (12:48)
[2022-11-07] MEDS ORDERED: Midazolam 2 mg/2 ml VIAL 1 mg/ml 2 ml VIAL (2 mg) ONE ×2 (13:46→15:42)
[2022-11-07] MEDS ORDERED: fentaNYL 100 mcg/2 ml 50 MCG/ML VIAL ONE ×2 (13:46→14:30)
[2022-11-07] MEDS ORDERED: ceFAZolin 1 GM ADVAN 1 GM ADDV.VIAL IVPB ONE (13:47)
[2022-11-07] MEDS ORDERED: Morphine 2 MG/ML SYRINGE ONE ×2 (14:30→15:09)
[2022-11-07] MEDS ORDERED: COVID VACC, MONOVAL PFIZER-TRIS 30 MCG/0.3 ML SYR IM ONE (15:00)
[2022-11-07] MEDS ORDERED: Naloxone Nasal Spray 4 MG/0.1 ML NASAL.SPR INTRANASAL PRN (21:45)
[2022-11-08 05:38] LABS: Mean Platelet Volume 8.1 fL (7.4-10.4); Platelet Count 375 10^3/uL (150-450)
[2022-11-08 05:45] LABS: INR 1.25 (0.88-1.18)
[2022-11-08] MEDS: HYDROmorphone 0.5 MG/0.5 ML SYRINGE IV SLOW PU PRN ×3 (07:33→21:09)
[2022-11-08] MEDS ORDERED: Influenza vaccine *QUAD* *2022-23* 0.5 ML SYRINGE IM ONE (09:00)
[2022-11-08] MEDS: Nicotine PATCH 14 MG/24 HR PATCH TRANSDERM SCH (09:53)
[2022-11-08] MEDS: Iron Sucrose 200 MG in NS 0.9% 100 ml BAG 100 ML IVPB SCH (09:53)
[2022-11-08] MEDS: NS 0.9% 1000 ml BAG 1,000 ML IV SCH (09:54)
[2022-11-08] MEDS: Ondansetron 4 mg VIAL 2 MG/ML 2 ml VIAL IV PRN (11:43)
[2022-11-08] MEDS ORDERED: COVID VACC, MONOVAL PFIZER-TRIS 30 MCG/0.3 ML SYR IM ONE (15:00)
[2022-11-08] MEDS: Polyethylene Glycol 3350 17 GM PACKET PO PRN (15:51)
[2022-11-09] MEDS: HYDROmorphone 0.5 MG/0.5 ML SYRINGE IV SLOW PU PRN ×3 (02:29→12:10)
[2022-11-09] MEDS: NS 0.9% 1000 ml BAG 1,000 ML IV SCH (06:19)
[2022-11-09] MEDS ORDERED: Influenza vaccine *QUAD* *2022-23* 0.5 ML SYRINGE IM ONE (09:00)
[2022-11-09] MEDS: Nicotine PATCH 14 MG/24 HR PATCH TRANSDERM SCH (09:08)
[2022-11-09] MEDS: Ondansetron 4 mg VIAL 2 MG/ML 2 ml VIAL IV PRN (14:14)
[2022-11-09] MEDS: HYDROmorphone 1 MG/1 ML SYRINGE IV SLOW PU PRN (20:10)
[2022-11-09] MEDS: Polyethylene Glycol 3350 17 GM PACKET PO PRN (22:01)
[2022-11-10] MEDS: HYDROmorphone 1 MG/1 ML SYRINGE IV SLOW PU PRN ×4 (01:20→19:51)
[2022-11-10 06:44] LABS: ABS Basophils 0.1 10^3/ul (0-0.2); ABS Eosinophils 0.3 10^3/ul (0-0.6); ABS Lymphocytes 1.2 10^3/ul (1.0-4.8); ABS Monocytes 0.7 10^3/ul (0-0.8); ABS Neutrophils 8.1 10^3/ul (1.5-7.7); Hematocrit 39 % (42-52); Hemoglobin 12.4 g/dL (14.0-18.0); Lymphocyte % 11.9 %; Mean Corpuscular HGB Conc 32 g/dL (31-36); Mean Corpuscular Hemoglobin 25 pg (27-31); Mean Corpuscular Volume 78 fL (80-94); Mean Platelet Volume 8.1 fL (7.4-10.4); Platelet Count 377 10^3/uL (150-450); Red Blood Count 4.94 10^6 /uL (4.18-5.48); Red Cell Distribution Width 14 % (10-15); White Blood Count 10.5 10^3/uL (3.5-10.8)
[2022-11-10 07:03] LABS: Albumin 3.7 g/dL (3.2-5.2); Albumin/Globulin Ratio 1.4 (1-3); Calcium 8.8 mg/dL (8.6-10.3); Globulin 2.7 g/dL (2-4); Potassium 4.3 mmol/L (3.5-5.0); Total Bilirubin 0.3 mg/dL (0.2-1.0); Total Protein 6.4 g/dL (6.4-8.9); Uric Acid 4.8 mg/dL (4.4-7.6)
[2022-11-10] MEDS: Iron Sucrose 200 MG in NS 0.9% 100 ml BAG 100 ML IVPB SCH (08:41)
[2022-11-10] MEDS: Ondansetron 4 mg VIAL 2 MG/ML 2 ml VIAL IV PRN (09:08)
[2022-11-10] MEDS: Nicotine PATCH 14 MG/24 HR PATCH TRANSDERM SCH ×2 (09:10→10:12)
[2022-11-10] MEDS ORDERED: Iohexol 350 (CONTRAST) 500 ML MDV IV ONE (10:31)
[2022-11-10] MEDS ORDERED: Senna TAB 8.6 mg TAB PO PRN (14:59)
[2022-11-10] MEDS: Magnesium Hydroxide LIQ 30 ML UDC PO PRN (15:33)
[2022-11-10] MEDS: NS 0.9% 1000 ml BAG 1,000 ML IV SCH ×2 (15:34→23:40)
[2022-11-10] MEDS: Magnesium Hydroxide LIQ 30 ML UDC PO SCH (19:46)
[2022-11-11] MEDS: HYDROmorphone 1 MG/1 ML SYRINGE IV SLOW PU PRN ×3 (03:57→14:27)
[2022-11-11] MEDS: Ondansetron 4 mg VIAL 2 MG/ML 2 ml VIAL IV PRN (06:21)
[2022-11-11] MEDS: NS 0.9% 1000 ml BAG 1,000 ML IV SCH (07:45)
[2022-11-11] MEDS: Nicotine PATCH 14 MG/24 HR PATCH TRANSDERM SCH (08:48)
[2022-11-11] MEDS: Magnesium Hydroxide LIQ 30 ML UDC PO SCH ×2 (08:50→20:49)
[2022-11-11] MEDS ORDERED: APREPITANT 130 MG in Premix IV 0 ML IV ONE (13:00)
[2022-11-11] MEDS ORDERED: Dexamethasone IV 4 MG/ML VIAL 1 ml VIAL IV SLOW PU ONE (13:00)
[2022-11-11] MEDS ORDERED: PALONOSETRON HCL 0.05 MG/ML (0.25 MG) SYRINGE (0.05 MG/ML) IV SCH (13:00)
[2022-11-11] MEDS ORDERED: BLEOMYCIN IVPB ONE (13:30)
[2022-11-11] MEDS ORDERED: NS 0.9% IVPB ONE (13:30)
[2022-11-11] MEDS ORDERED: Dexamethasone IV 4 MG/ML VIAL 1 ml VIAL ONE (13:51)
[2022-11-11] MEDS: PALONOSETRON HCL 0.05 MG/ML (0.25 MG) SYRINGE (0.05 MG/ML) IV SCH (14:32)
[2022-11-11] MEDS: NS 0.9% IVPB SCH ×4 (14:33→17:52)
[2022-11-11] MEDS: MAGNESIUM SULFATE IVPB SCH ×2 (14:33→17:52)
[2022-11-11] MEDS: POTASSIUM CHLORIDE IVPB SCH ×2 (14:33→17:52)
[2022-11-11] MEDS: ETOPOSIDE IVPB SCH (15:20)
[2022-11-11] MEDS: CISPLATIN IVPB SCH (16:19)
[2022-11-12 06:58] LABS: ABS Basophils 0.1 10^3/ul (0-0.2); ABS Lymphocytes 0.6 10^3/ul (1.0-4.8); ABS Monocytes 0.3 10^3/ul (0-0.8); ABS Neutrophils 11.2 10^3/ul (1.5-7.7); Eosinophil % 0.1 %; Hematocrit 38 % (42-52); Hemoglobin 11.8 g/dL (14.0-18.0); Lymphocyte % 4.7 %; Mean Corpuscular HGB Conc 31 g/dL (31-36); Mean Corpuscular Hemoglobin 24 pg (27-31); Mean Corpuscular Volume 78 fL (80-94); Platelet Count 393 10^3/uL (150-450); Red Blood Count 4.84 10^6 /uL (4.18-5.48); Red Cell Distribution Width 14 % (10-15); White Blood Count 12.2 10^3/uL (3.5-10.8)
[2022-11-12] MEDS: HYDROmorphone 1 MG/1 ML SYRINGE IV SLOW PU PRN (07:25)
[2022-11-12 07:42] LABS: Albumin 3.8 g/dL (3.2-5.2); Calcium 8.6 mg/dL (8.6-10.3); Potassium 4.9 mmol/L (3.5-5.0); Total Bilirubin 0.4 mg/dL (0.2-1.0)
[2022-11-12 07:48] LABS: Albumin/Globulin Ratio 1.4 (1-3); Globulin 2.7 g/dL (2-4); Total Protein 6.5 g/dL (6.4-8.9); eGFR CKD-EPI 135.4 (>60)
[2022-11-12] MEDS: Magnesium Hydroxide LIQ 30 ML UDC PO SCH ×2 (08:20→22:03)
[2022-11-12] MEDS: Nicotine PATCH 14 MG/24 HR PATCH TRANSDERM SCH (08:20)
[2022-11-12] MEDS: Iron Sucrose 200 MG in NS 0.9% 100 ml BAG 100 ML IVPB SCH (09:14)
[2022-11-12] MEDS ORDERED: HYDROmorphone 1 MG/1 ML SYRINGE IV SLOW PU PRN (11:36)
[2022-11-12] MEDS ORDERED: Dexamethasone IV 4 MG/ML VIAL 1 ml VIAL ONE (12:49)
[2022-11-12] MEDS: NS 0.9% IVPB SCH ×4 (12:58→15:57)
[2022-11-12] MEDS: POTASSIUM CHLORIDE IVPB SCH ×2 (12:58→15:57)
[2022-11-12] MEDS: MAGNESIUM SULFATE IVPB SCH ×2 (12:58→15:57)
[2022-11-12] MEDS: Dexamethasone IV 4 MG/ML VIAL 1 ml VIAL IV SLOW PU SCH (13:03)
[2022-11-12] MEDS: ETOPOSIDE IVPB SCH (13:48)
[2022-11-12] MEDS: CISPLATIN IVPB SCH (14:45)
[2022-11-12 16:01] LABS: Magnesium 2.1 mg/dL (1.9-2.7)
[2022-11-13] MEDS: NS 0.9% IVPB SCH ×4 (11:22→14:35)
[2022-11-13] MEDS: MAGNESIUM SULFATE IVPB SCH ×2 (11:22→14:35)
[2022-11-13] MEDS: POTASSIUM CHLORIDE IVPB SCH ×2 (11:22→14:35)
[2022-11-13] MEDS: Nicotine PATCH 14 MG/24 HR PATCH TRANSDERM SCH (11:31)
[2022-11-13] MEDS: Magnesium Hydroxide LIQ 30 ML UDC PO SCH ×2 (11:41→20:49)
[2022-11-13] MEDS: Dexamethasone IV 4 MG/ML VIAL 1 ml VIAL IV SLOW PU SCH (12:11)
[2022-11-13] MEDS: ETOPOSIDE IVPB SCH (12:19)
[2022-11-13] MEDS: CISPLATIN IVPB SCH (13:17)
[2022-11-13] MEDS ORDERED: Calcium Carb (TUMS) 500 mg CHEW TAB PO PRN (13:42)
[2022-11-13] MEDS: Metoclopramide 5 MG/ML VIAL (10 mg) IV PRN ×2 (16:02→22:04)
[2022-11-14 05:33] LABS: ABS Lymphocytes 1.3 10^3/ul (1.0-4.8); ABS Monocytes 0.2 10^3/ul (0-0.8); ABS Neutrophils 4.9 10^3/ul (1.5-7.7); Eosinophil % 0.3 %; Hematocrit 25 % (42-52); Hemoglobin 7.7 g/dL (14.0-18.0); Lymphocyte % 20.4 %; Mean Corpuscular HGB Conc 31 g/dL (31-36); Mean Corpuscular Hemoglobin 24 pg (27-31); Mean Corpuscular Volume 79 fL (80-94); Mean Platelet Volume 7.7 fL (7.4-10.4); Platelet Count 245 10^3/uL (150-450); Red Blood Count 3.18 10^6 /uL (4.18-5.48); Red Cell Distribution Width 14 % (10-15); White Blood Count 6.5 10^3/uL (3.5-10.8)
[2022-11-14 05:49] LABS: Albumin 3.6 g/dL (3.2-5.2); Albumin/Globulin Ratio 1.3 (1-3); Calcium 8.3 mg/dL (8.6-10.3); Globulin 2.8 g/dL (2-4); Magnesium 1.8 mg/dL (1.9-2.7); Potassium 3.9 mmol/L (3.5-5.0); Total Bilirubin 0.5 mg/dL (0.2-1.0); Total Protein 6.4 g/dL (6.4-8.9); eGFR CKD-EPI 132.9 (>60)
[2022-11-14 07:32] LABS: Hematocrit 35 % (42-52); Hemoglobin 11.1 g/dL (14.0-18.0)
[2022-11-14] MEDS: Metoclopramide 5 MG/ML VIAL (10 mg) IV PRN ×3 (09:00→23:45)
[2022-11-14] MEDS: Iron Sucrose 200 MG in NS 0.9% 100 ml BAG 100 ML IVPB SCH (09:03)
[2022-11-14] MEDS: Magnesium Hydroxide LIQ 30 ML UDC PO SCH ×2 (09:09→21:29)
[2022-11-14] MEDS: PALONOSETRON HCL 0.05 MG/ML (0.25 MG) SYRINGE (0.05 MG/ML) IV SCH (13:34)
[2022-11-14] MEDS: MAGNESIUM SULFATE IVPB SCH ×2 (13:37→16:20)
[2022-11-14] MEDS: NS 0.9% IVPB SCH ×4 (13:37→16:20)
[2022-11-14] MEDS: POTASSIUM CHLORIDE IVPB SCH ×2 (13:37→16:20)
[2022-11-14] MEDS: Dexamethasone IV 4 MG/ML VIAL 1 ml VIAL IV SLOW PU SCH (14:14)
[2022-11-14] MEDS: ETOPOSIDE IVPB SCH (14:18)
[2022-11-14] MEDS: Nicotine PATCH 14 MG/24 HR PATCH TRANSDERM SCH ×2 (14:33→19:44)
[2022-11-14] MEDS: CISPLATIN IVPB SCH (15:14)
[2022-11-14 15:47] LABS: AFP Tumor Marker 8.8 ng/mL (<8.4)
[2022-11-14] MEDS ORDERED: Lorazepam PYXIS KEY PRN (17:54)
[2022-11-14] MEDS ORDERED: LORazepam 2 mg VIAL 1 ml IV PUSH ONE (17:54)
[2022-11-14] MEDS ORDERED: Lorazepam PYXIS KEY ONE (18:01)
[2022-11-14] MEDS: Magnesium Hydroxide LIQ 30 ML UDC PO PRN (21:36)
[2022-11-15] MEDS ORDERED: Dexamethasone IV 4 MG/ML VIAL 1 ml VIAL IV SLOW PU SCH (08:00)
[2022-11-15] MEDS: Magnesium Hydroxide LIQ 30 ML UDC PO SCH (08:15)
[2022-11-15] MEDS: Nicotine PATCH 14 MG/24 HR PATCH TRANSDERM SCH (08:17)
[2022-11-15] MEDS ORDERED: Dexamethasone IV 4 MG/ML VIAL 1 ml VIAL ONE (10:37)
[2022-11-15] MEDS: NS 0.9% IVPB SCH ×5 (10:58→14:36)
[2022-11-15] MEDS: POTASSIUM CHLORIDE IVPB SCH ×3 (10:58→14:36)
[2022-11-15] MEDS: MAGNESIUM SULFATE IVPB SCH ×3 (10:58→14:36)
[2022-11-15] MEDS: Dexamethasone IV 4 MG/ML VIAL 1 ml VIAL IV SLOW PU SCH (11:02)
[2022-11-15] MEDS: ETOPOSIDE IVPB SCH (11:33)
[2022-11-15] MEDS: CISPLATIN IVPB SCH (12:34)
[2022-11-15 16:14] VITALS: BP 131/68
[2022-11-18] MEDS ORDERED: BLEOMYCIN IVPB SCH (13:00)
[2022-11-18] MEDS ORDERED: NS 0.9% IVPB SCH (13:00)
== END 2022-11-15 16:37 | disposition home or self-care (01) | DRG 500 ==
LOC: CHOA 13:52 → SUATTDRO 15:23 → SSU 15:23
PROVIDERS: ADMIT Internal Medicine Medical Oncology; ATTEND Internal Medicine

== ENCOUNTER 2023-09-17 15:11 | Inpatient (IN) ==
[2023-09-17 16:50] LABS: Activated Partial Thrombo Time 31.6 seconds (26.0-38.0)
[2023-09-17] MEDS ORDERED: Immune Globulin IV Order (CPOE ENTRY PROTOCOL) IV SCH (17:00)
[2023-09-17] MEDS: Enoxaparin 100 MG/ML SYR SUBCUT SCH (17:57)
[2023-09-17] MEDS ORDERED: Immune Glob 10%-20GM GAMMAGLIQ 40 GM in Premix IV 0 ML IV SCH (18:00)
[2023-09-17] MEDS: Immune Glob 10%-20GM GAMMAGLIQ 40 GM in Premix IV 0 ML IV SCH (18:19)
[2023-09-18] MEDS: Enoxaparin 100 MG/ML SYR SUBCUT SCH (05:00)
[2023-09-18 05:08] LABS: ABS Eosinophils 0.1 10^3/uL (0.0-0.5); ABS Lymphocytes 1.5 10^3/uL (1.0-4.8); ABS Monocytes 0.5 10^3/uL (0.0-1.1); Hematocrit 39.4 % (38-53); Hemoglobin 13.2 g/dL (13.2-16.3); Lymphocyte % 24.5 %; Mean Corpuscular Hemoglobin 26.8 pg (27-33); Mean Corpuscular Hgb Conc 33.6 g/dL (31-36); Mean Corpuscular Volume 79.9 fL (80-97); Mean Platelet Volume 8.1 fL (7.5-11.2); Nucleated Red Blood Cells % 0.1 %/100WBC (0.0-0.8); Platelet Count 216 10^3/uL (150-450); Red Blood Count 4.93 10^6/uL (4.06-5.63); Red Cell Distribution Width 13.9 % (12-17); White Blood Count 6.3 10^3/uL (3.6-10.2)
[2023-09-18 05:15] LABS: INR 1.05 (0.83-1.13)
[2023-09-18 05:25] LABS: Creatinine, Serum 0.86 mg/dL (0.67-1.17); Magnesium 1.8 mg/dL (1.9-2.7); Potassium 3.8 mmol/L (3.5-5.0); eGFR CKD-EPI 122.5 (>60)
[2023-09-18] MEDS ORDERED: Magnesium Sulfate 2 gm BAG 2 GM/50 ML BAG IVPB ONE (05:53)
[2023-09-18] MEDS ORDERED: Potassium Chlor 20 meq TAB.ER PO ONE (07:34)
[2023-09-18] MEDS: Lidocaine PATCH 5% PATCH TRANSDERM SCH (08:44)
[2023-09-18 13:27] LABS: HIV 4th Generation Nonreactive (Nonreactive)
[2023-09-18] MEDS: Immune Glob 10%-20GM GAMMAGLIQ 40 GM in Premix IV 0 ML IV SCH (18:39)
[2023-09-18] MEDS: Morphine 2 MG/ML SYRINGE IV PRN (21:13)
[2023-09-19] MEDS: Morphine 2 MG/ML SYRINGE IV PRN ×4 (03:08→23:25)
[2023-09-19 03:22] LABS: Hemoglobin 12.7 g/dL (13.2-16.3); Mean Corpuscular Hgb Conc 33.3 g/dL (31-36); Mean Platelet Volume 8.2 fL (7.5-11.2); Platelet Count 198 10^3/uL (150-450); Red Cell Distribution Width 13.5 % (12-17); White Blood Count 4.8 10^3/uL (3.6-10.2)
[2023-09-19 03:46] LABS: Albumin 4.1 g/dL (3.2-5.2); Calcium 8.7 mg/dL (8.6-10.3); Creatinine, Serum 0.98 mg/dL (0.67-1.17); Potassium 3.7 mmol/L (3.5-5.0); Total Bilirubin 0.2 mg/dL (0.2-1.0); Total Protein 8.1 g/dL (6.4-8.9); eGFR CKD-EPI 109.1 (>60)
[2023-09-19] MEDS: Lidocaine PATCH 5% PATCH TRANSDERM SCH ×2 (08:19→12:10)
[2023-09-19 08:46] LABS: Body Fluid Source Cerebral Spinal
[2023-09-19 09:01] LABS: CSF Glucose 61 mg/dL (40-70)
[2023-09-19 09:14] LABS: Body Fluid Appearance Clear; Body Fluid Color Colorless; CSF Tube # 4
[2023-09-19 09:23] LABS: CSF Body Fluid WBC 1 /mcL
[2023-09-19 10:46] LABS: Body Fluid Mono 18 %; Body Fluid Total Cells Counted 56
[2023-09-19] MEDS ORDERED: Butalb/Acetamin/Caff TAB 325-50-40MG PO ONE (17:26)
[2023-09-19] MEDS: Immune Glob 10%-20GM GAMMAGLIQ 40 GM in Premix IV 0 ML IV SCH (17:48)
[2023-09-20 04:42] LABS: Hematocrit 37.3 % (38-53); Hemoglobin 12.7 g/dL (13.2-16.3); Mean Corpuscular Hemoglobin 27.4 pg (27-33); Mean Corpuscular Volume 80.5 fL (80-97); Platelet Count 184 10^3/uL (150-450); Red Blood Count 4.63 10^6/uL (4.06-5.63); Red Cell Distribution Width 13.5 % (12-17); White Blood Count 8.4 10^3/uL (3.6-10.2)
[2023-09-20 05:03] LABS: Calcium 8.9 mg/dL (8.6-10.3); Creatinine, Serum 1.02 mg/dL (0.67-1.17); Magnesium 1.7 mg/dL (1.9-2.7); Potassium 3.9 mmol/L (3.5-5.0)
[2023-09-20] MEDS ORDERED: Magnesium Sulfate 2 gm BAG 2 GM/50 ML BAG IVPB ONE (07:28)
[2023-09-20] MEDS ORDERED: Potassium Chlor 10 meq TAB PO ONE (07:29)
[2023-09-20] MEDS: Lidocaine PATCH 5% PATCH TRANSDERM SCH (07:49)
[2023-09-20] MEDS: Morphine 2 MG/ML SYRINGE IV PRN ×3 (07:54→21:18)
[2023-09-20] MEDS ORDERED: Lidocaine 2% PF 5 ML VIAL ONE (09:51)
[2023-09-20] MEDS ORDERED: Lidocaine 4% TOPICAL 50 ML TOP.SOLN TOPICAL ONE (10:13)
[2023-09-20] MEDS: Lactated Ringers 1000 ml BAG 1,000 ML IV SCH (13:50)
[2023-09-20] MEDS: Enoxaparin 100 MG/ML SYR SUBCUT SCH (17:48)
[2023-09-20] MEDS: Immune Glob 10%-20GM GAMMAGLIQ 40 GM in Premix IV 0 ML IV SCH (19:26)
[2023-09-21] MEDS: Morphine 2 MG/ML SYRINGE IV PRN ×5 (03:56→23:12)
[2023-09-21] MEDS: Enoxaparin 100 MG/ML SYR SUBCUT SCH (05:43)
[2023-09-21] MEDS: Lactated Ringers 1000 ml BAG 1,000 ML IV SCH (07:08)
[2023-09-21] MEDS: Lidocaine PATCH 5% PATCH TRANSDERM SCH (08:45)
[2023-09-21] MEDS ORDERED: Magnesium Sulfate 2 gm BAG 2 GM/50 ML BAG IVPB ONE (10:53)
[2023-09-21] MEDS ORDERED: Ondansetron 4 mg VIAL 2 MG/ML 2 ml VIAL ONE (12:00)
[2023-09-21] MEDS: Ondansetron 4 mg VIAL 2 MG/ML 2 ml VIAL IV PRN ×2 (12:02→18:59)
[2023-09-21] MEDS: Caffeine Citrate ORAL 20 MG/ML ORAL.SOLN 3 ML (preservative free) PO SCH ×2 (12:03→16:34)
[2023-09-21] MEDS ORDERED: Lactated Ringers 1000 ml BAG 1,000 ML IV SCH (14:00)
[2023-09-21] MEDS ORDERED: Iohexol 300 (CONTRAST) 10 ML SDV IV ONE (14:02)
[2023-09-21] MEDS: Immune Glob 10%-20GM GAMMAGLIQ 40 GM in Premix IV 0 ML IV SCH (19:29)
[2023-09-21 20:12] LABS: Calcium 8.9 mg/dL (8.6-10.3); Creatinine, Serum 1.1 mg/dL (0.67-1.17); Potassium 4.2 mmol/L (3.5-5.0); eGFR CKD-EPI 94.9 (>60)
[2023-09-22 06:28] LABS: ABS Eosinophils 0.1 10^3/uL (0.0-0.5); ABS Lymphocytes 1.7 10^3/uL (1.0-4.8); ABS Monocytes 0.5 10^3/uL (0.0-1.1); ABS Nucleated RBC 0.01 10^3/ul; Eosinophil % 1.3 %; Hematocrit 34.3 % (38-53); Hemoglobin 11.8 g/dL (13.2-16.3); Lymphocyte % 26.2 %; Mean Corpuscular Hemoglobin 27.7 pg (27-33); Mean Corpuscular Hgb Conc 34.5 g/dL (31-36); Mean Corpuscular Volume 80.1 fL (80-97); Nucleated Red Blood Cells % 0.1 %/100WBC (0.0-0.8); Platelet Count 213 10^3/uL (150-450); Red Blood Count 4.28 10^6/uL (4.06-5.63); Red Cell Distribution Width 13.1 % (12-17); White Blood Count 6.4 10^3/uL (3.6-10.2)
[2023-09-22 06:48] LABS: Magnesium 1.8 mg/dL (1.9-2.7); Phosphorus 4.9 mg/dL (2.5-5.0)
[2023-09-22] MEDS: Lidocaine PATCH 5% PATCH TRANSDERM SCH (07:18)
[2023-09-22] MEDS: Caffeine Citrate ORAL 20 MG/ML ORAL.SOLN 3 ML (preservative free) PO SCH (07:18)
[2023-09-22 07:22] LABS: INR 1.05 (0.83-1.13)
[2023-09-22] MEDS ORDERED: Enoxaparin 100 MG/ML SYR SUBCUT SCH (10:00)
[2023-09-22 14:12] VITALS: BP 132/78
[2023-09-23 14:15] LABS: Albumin 4.1 g/dL (3.4-4.7); Flag, M-protein Isotype Negative (Negative); Total Protein 7.4 g/dL (6.3 - 7.9)
== END 2023-09-22 15:20 | disposition home or self-care (01) | DRG 49 ==
LOC: ED 15:11 → SUATTDRO 16:19 → EDHOLD 16:19 → ICU 16:57 → SSU 09-20 13:18
PROVIDERS: ADMIT Internal Medicine Pulmonary Disease; ATTEND Internal Medicine